=== PATIENT | male | born 1990 | race Caucasian/White ===

== ENCOUNTER 2023-07-06 11:25 | Emergency (ER) | payer SELFPAY ==
[2023-07-06 11:34] VITALS: BP 108/65; PULSE 75; RESP 18; TEMP 97.8; BMI 26.9
== END 2023-07-06 14:23 | disposition home or self-care (01) ==
LOC: JERFT 11:25
DX: S20.212A Contusion of left front wall of thorax, initial encounter (principal); W10.8XXA Fall (on) (from) other stairs and steps, initial encounter
CPT/HCPCS: 71101-TC-LT-FY; 99283-25